=== PATIENT | male | born 1985 | race African-American/Black ===

== ENCOUNTER 2021-03-12 01:28 | Inpatient (IN) ==
[2021-03-12] MEDS ORDERED: ONDANSETRON 4 MG/2 ML VIAL IV STA (01:43)
[2021-03-12] MEDS ORDERED: SODIUM CHLORIDE 0.9% 1,000 ML IV STA ×2 (01:45→03:49)
[2021-03-12] MEDS ORDERED: HYDROmorphone 2 MG/1 ML VIAL IV STA (02:21)
[2021-03-12 03:01] LABS: Basophils % 0.2 % (0.0-0.8); Eosinophils # 0.1 10*3/uL (0.0-0.87); Eosinophils % 0.5 % (0.00-10.9); Hematocrit 22.6 VOL% (42.0-52.0); Hemoglobin 7.3 GM/DL (14.0-18.0); Immature Granulocytes % 1.2 %; Immature Granulocytes Absolute 0.18 #; Lymphocytes # 1.3 10*3/uL (1.4-4.0); Lymphocytes % 8.4 % (21.2-54.2); Mean Corpuscular HGB Conc 32.3 GM/DL (32-36); Monocytes % 6.5 % (1.7-12.7); NRBC # 0.06 10*3/uL; Neutrophils % 83.2 % (38.7-73.9); Platelet Count 491 T/CUMM (130-400); Red Blood Count 2.51 MC/CUMM (3.8-5.5); Red Cell Distribution Width 17.1 % (9.3-17.3); White Blood Count 15.1 T/CUMM (4-12)
[2021-03-12 03:35] LABS: Albumin 1.8 G/DL (3.4-5.0); Bilirubin,Total 0.6 MG/DL (0.20-1.00); Calcium 11.2 MG/DL (8.5-10.1); Osmolality,Calculated 303.4 MOS/KG (273-304); Potassium 3.9 MMOL/L (3.5-5.1); Total Protein 7.1 G/DL (6.4-8.2)
[2021-03-12] MEDS ORDERED: PIPERACILLIN/TAZOBACTAM 3,375 MG in SODIUM CHLORIDE 0.9% 100 ML IV STA (05:15)
[2021-03-12] MEDS ORDERED: ACETAMINOPHEN 325 MG TABLET PO PRN (05:56)
[2021-03-12] MEDS ORDERED: HYDROmorphone 2 MG/1 ML VIAL IV PRN (05:56)
[2021-03-12] MEDS ORDERED: GLUCAGON 1 MG VIAL IM PRN (05:56)
[2021-03-12] MEDS ORDERED: DEXTROSE 10% 250 ML BAG IV PRN (05:56)
[2021-03-12] MEDS: SODIUM CHLORIDE 0.9% 1,000 ML IV SCH ×3 (06:19→22:30)
[2021-03-12 06:36] LABS: Bilirubin,Urine Negative (Negative); Blood, Urine Negative (Negative); Glucose,Urine (UA) Negative (Negative); Ketones,Urine Negative (Negative); Nitrite,Urine Negative (Negative); Protein,Urine 30 MG/DL; RBC,Urine 3 /HPF (0-4); Squamous Epithelial Cell,Urine Occasional /HPF (0-10); Urine Appearance CLEAR (Clear); Urine Color Yellow (Yellow); Urine Specific Gravity 1.014 (1.001-1.035); Urine Urobilinogen < 2.0 EU/DL (<2.0)
[2021-03-12 07:29] LABS: % Iron Saturation 17.5 % (18-50)
[2021-03-12 07:31] LABS: Folate 3.62 NG/ML (5.38-24.0)
[2021-03-12] MEDS: ALBUTEROL/IPRATROPIUM 3 ML NEB RESP TX SCH ×3 (07:37→19:18)
[2021-03-12 08:01] LABS: Barbiturates Screen,Urine Negative (Negative); Benzodiazepines Screen,Urine Negative (Negative); Cannabinoid Screen,Urine Negative (Negative); Opiate Screen,Urine Positive (Negative); Phencyclidine Screen,Urine Negative (Negative)
[2021-03-12] MEDS: FERROUS SULFATE 325 MG TABLET PO SCH ×2 (09:30→21:46)
[2021-03-12] MEDS: PANTOPRAZOLE 40 MG VIAL IV SCH (09:30)
[2021-03-12] MEDS: FOLIC ACID 1 MG TABLET PO SCH ×2 (09:30→21:46)
[2021-03-12] MEDS ORDERED: VANCOMYCIN INJ 1,250 MG in SODIUM CHLORIDE 0.9% 250 ML IV ONE (11:00)
[2021-03-12] MEDS: HYDROmorphone 2 MG/1 ML VIAL IV PRN ×4 (14:00→23:30)
[2021-03-12] MEDS ORDERED: ONDANSETRON 4 MG/2 ML VIAL IV PRN (14:22)
[2021-03-12] MEDS: PIPERACILLIN/TAZOBACTAM 3,375 MG in SODIUM CHLORIDE 0.9% 100 ML IV SCH ×2 (14:51→21:57)
[2021-03-12 15:11] LABS: Hematocrit 22.4 VOL% (42.0-52.0)
[2021-03-13] MEDS: HYDROmorphone 2 MG/1 ML VIAL IV PRN ×4 (01:42→17:31)
[2021-03-13] MEDS: ALBUTEROL/IPRATROPIUM 3 ML NEB RESP TX SCH ×4 (02:23→19:13)
[2021-03-13 05:49] LABS: Basophils % 0.2 % (0.0-0.8); Eosinophils % 0.3 % (0.00-10.9); Hematocrit 22.4 VOL% (42.0-52.0); Hemoglobin 6.9 GM/DL (14.0-18.0); Immature Granulocytes % 0.9 %; Immature Granulocytes Absolute 0.12 #; Lymphocytes # 0.9 10*3/uL (1.4-4.0); Lymphocytes % 6.7 % (21.2-54.2); Mean Corpuscular HGB Conc 30.8 GM/DL (32-36); Mean Corpuscular Volume 92.6 FL (87-102); NRBC # 0.05 10*3/uL; Neutrophils % 86.9 % (38.7-73.9); Platelet Count 431 T/CUMM (130-400); Red Blood Count 2.42 MC/CUMM (3.8-5.5); Red Cell Distribution Width 17.5 % (9.3-17.3); White Blood Count 13.7 T/CUMM (4-12)
[2021-03-13] MEDS: PIPERACILLIN/TAZOBACTAM 3,375 MG in SODIUM CHLORIDE 0.9% 100 ML IV SCH (05:53)
[2021-03-13 06:28] LABS: Alanine Aminotransferase 22 U/L (16-61); Albumin 1.6 G/DL (3.4-5.0); Alkaline Phosphatase 381 U/L (45-117); Aspartate Amino Transferase 111 U/L (0-37); Bilirubin,Total < 0.39 MG/DL (0.20-1.00); Blood Urea Nitrogen 102 MG/DL (7-18); Calcium 11.4 MG/DL (8.5-10.1); Carbon Dioxide 24 MMOL/L (21-32); Estimated Glom Filtration Rate 30 ML/MIN; Glucose 89 MG/DL (74-106); Osmolality,Calculated 296.4 MOS/KG (273-304); Potassium 4.2 MMOL/L (3.5-5.1); Sodium 133 MMOL/L (136-145); Total Protein 6.7 G/DL (6.4-8.2)
[2021-03-13] MEDS ORDERED: VANCOMYCIN INJ 1,000 MG in SODIUM CHLORIDE 0.9% 250 ML IV PRN (09:00)
[2021-03-13] MEDS: PANTOPRAZOLE 40 MG VIAL IV SCH (09:30)
[2021-03-13] MEDS: FERROUS SULFATE 325 MG TABLET PO SCH ×2 (09:30→22:36)
[2021-03-13] MEDS: FOLIC ACID 1 MG TABLET PO SCH ×2 (09:30→22:36)
[2021-03-13] MEDS: SODIUM CHLORIDE 0.9% 1,000 ML IV SCH ×3 (10:29→22:36)
[2021-03-13] MEDS ORDERED: LORazepam 2 MG/1 ML VIAL IV PRN (10:30)
[2021-03-13] MEDS ORDERED: SODIUM CHLORIDE 0.9% 1,000 ML IV PRN (11:04)
[2021-03-13 12:28] LABS: Prostate Specific Antigen Diag 0.54 NG/ML (0-3.60)
[2021-03-13 12:33] LABS: Carcinoembryonic Antigen 0.63 NG/ML (0.0-5.0)
[2021-03-13] MEDS: methylPREDNISolone SOD SUC 125 MG/2 ML VIAL IV SCH ×2 (13:16→22:37)
[2021-03-13] MEDS ORDERED: FUROSEMIDE 20 MG/2 ML VIAL IV ONE (15:50)
[2021-03-13 16:46] LABS: ABG Base Excess -1.9 MMOL/L (-2.5-2.5); ABG HCO3 22.8 MMOL/L (20-26); ABG Oxygen Saturation 93.4 % (95-100); ABG PCO2 38.8 MM HG (35-48); ABG PO2 70.7 MM HG (80-95); ABG TCO2 21.5 MMOL/L (23-27)
[2021-03-13] MEDS: MEROPENEM 1,000 MG in SODIUM CHLORIDE 0.9% 100 ML IV SCH (22:35)
[2021-03-14] MEDS: HYDROmorphone 2 MG/1 ML VIAL IV PRN ×6 (00:15→20:23)
[2021-03-14] MEDS: ALBUTEROL/IPRATROPIUM 3 ML NEB RESP TX SCH ×4 (01:25→19:40)
[2021-03-14 05:36] LABS: Basophils % 0.1 % (0.0-0.8); Immature Granulocytes % 0.9 %; Immature Granulocytes Absolute 0.18 #; Lymphocytes # 0.8 10*3/uL (1.4-4.0); Lymphocytes % 4.2 % (21.2-54.2); Mean Corpuscular HGB Conc 32.6 GM/DL (32-36); Mean Corpuscular Volume 90.3 FL (87-102); Mean Platelet Volume 9.1 FL (9.6-12.0); Monocytes % 5.4 % (1.7-12.7); NRBC # 0.04 10*3/uL; Neutrophils % 89.4 % (38.7-73.9); Red Cell Distribution Width 16.3 % (9.3-17.3)
[2021-03-14 05:40] LABS: Hematocrit 31.6 VOL% (42.0-52.0); Hemoglobin 10.3 GM/DL (14.0-18.0); Platelet Count 414 T/CUMM (130-400); White Blood Count 19.4 T/CUMM (4-12)
[2021-03-14 06:02] LABS: Albumin 1.6 G/DL (3.4-5.0); Bilirubin,Total 0.4 MG/DL (0.20-1.00); Calcium 10.6 MG/DL (8.5-10.1); Potassium 4.2 MMOL/L (3.5-5.1); Total Protein 6.8 G/DL (6.4-8.2)
[2021-03-14 06:02] LABS: Band Neutrophils 4 % (0-10); Hypochromia 1+; Lymphocytes 2 % (20-55); Metamyelocytes 1 %; Microcytosis 1+; Platelet Estimate Increased; Polychromasia Slight; Segmented Neutrophils 90 % (50-85); Target Cells Slight; Total Cells Counted 100
[2021-03-14 08:13] LABS: Albumin 1.6 G/DL (3.4-5.0); Bilirubin,Total 0.4 MG/DL (0.20-1.00); Calcium 10.7 MG/DL (8.5-10.1); Potassium 4.3 MMOL/L (3.5-5.1); Total Protein 6.7 G/DL (6.4-8.2)
[2021-03-14 08:25] LABS: INR 1.2; PT Patient Result 12.7 SECS (10.5-12.0)
[2021-03-14] MEDS: FOLIC ACID 1 MG TABLET PO SCH ×2 (09:03→21:54)
[2021-03-14] MEDS: FERROUS SULFATE 325 MG TABLET PO SCH ×2 (09:03→21:54)
[2021-03-14] MEDS: PANTOPRAZOLE 40 MG VIAL IV SCH (09:04)
[2021-03-14] MEDS: MEROPENEM 1,000 MG in SODIUM CHLORIDE 0.9% 100 ML IV SCH (09:13)
[2021-03-14] MEDS ORDERED: fentaNYL 12 MCG/HR PATCH TRANSDERM SCH (09:18)
[2021-03-14] MEDS ORDERED: FUROSEMIDE 20 MG/2 ML VIAL IV ONE (13:47)
[2021-03-14] MEDS: methylPREDNISolone SOD SUC 125 MG/2 ML VIAL IV SCH ×2 (14:16→22:30)
[2021-03-14] MEDS: HEPARIN 5,000 UNIT/1 ML VIAL SUBCUT SCH ×2 (14:36→22:03)
[2021-03-14] MEDS ORDERED: VANCOMYCIN INJ 1,000 MG in SODIUM CHLORIDE 0.9% 250 ML IV ONE (15:00)
[2021-03-14] MEDS: SODIUM CHLORIDE 0.9% 1,000 ML IV SCH (19:12)
[2021-03-14] MEDS: MEROPENEM 500 MG in SODIUM CHLORIDE 0.9% 100 ML IV SCH (21:59)
[2021-03-15] MEDS: HYDROmorphone 2 MG/1 ML VIAL IV PRN ×10 (01:30→23:08)
[2021-03-15] MEDS: SODIUM CHLORIDE 0.9% 1,000 ML IV SCH ×2 (01:32→20:09)
[2021-03-15] MEDS: MEROPENEM 500 MG in SODIUM CHLORIDE 0.9% 100 ML IV SCH ×3 (05:16→21:30)
[2021-03-15] MEDS: HEPARIN 5,000 UNIT/1 ML VIAL SUBCUT SCH ×3 (05:18→21:30)
[2021-03-15 07:02] LABS: Basophils % 0.1 % (0.0-0.8); Hematocrit 31.3 VOL% (42.0-52.0); Immature Granulocytes Absolute 0.21 #; Lymphocytes # 0.8 10*3/uL (1.4-4.0); Mean Corpuscular HGB Conc 31.9 GM/DL (32-36); Mean Corpuscular Volume 90.7 FL (87-102); Monocytes % 3.3 % (1.7-12.7); Neutrophils % 91.6 % (38.7-73.9); Platelet Count 422 T/CUMM (130-400); Red Blood Count 3.45 MC/CUMM (3.8-5.5); White Blood Count 20.6 T/CUMM (4-12)
[2021-03-15] MEDS: ALBUTEROL/IPRATROPIUM 3 ML NEB RESP TX SCH ×2 (07:15→07:20)
[2021-03-15 07:26] LABS: Anisocytosis 1+; Band Neutrophils 2 % (0-10); Hypochromia 1+; Lymphocytes 4 % (20-55); Microcytosis 1+; Segmented Neutrophils 91 % (50-85); Total Cells Counted 100
[2021-03-15 07:27] LABS: Platelet Estimate Increased
[2021-03-15 07:31] LABS: Calcium 9.5 MG/DL (8.5-10.1); Osmolality,Calculated 316.5 MOS/KG (273-304); Potassium 4.8 MMOL/L (3.5-5.1)
[2021-03-15 08:45] LABS: Albumin 1.6 G/DL (3.4-5.0); Bilirubin,Total 0.4 MG/DL (0.20-1.00); Calcium 10.1 MG/DL (8.5-10.1); Osmolality,Calculated 312.8 MOS/KG (273-304); Potassium 4.8 MMOL/L (3.5-5.1); Total Protein 6.7 G/DL (6.4-8.2)
[2021-03-15] MEDS: FERROUS SULFATE 325 MG TABLET PO SCH ×2 (09:06→20:18)
[2021-03-15] MEDS: PANTOPRAZOLE 40 MG VIAL IV SCH (09:06)
[2021-03-15] MEDS: FOLIC ACID 1 MG TABLET PO SCH ×2 (09:06→20:18)
[2021-03-15] MEDS: methylPREDNISolone SOD SUC 125 MG/2 ML VIAL IV SCH ×2 (10:48→22:30)
[2021-03-15] MEDS: fentaNYL 50 MCG/HR PATCH TRANSDERM SCH (12:37)
[2021-03-15] MEDS: busPIRone 5 MG TABLET PO SCH ×2 (15:05→20:18)
[2021-03-16] MEDS: HYDROmorphone 2 MG/1 ML VIAL IV PRN ×7 (01:13→23:13)
[2021-03-16] MEDS: HEPARIN 5,000 UNIT/1 ML VIAL SUBCUT SCH ×3 (05:01→22:32)
[2021-03-16] MEDS: MEROPENEM 500 MG in SODIUM CHLORIDE 0.9% 100 ML IV SCH ×3 (05:14→22:33)
[2021-03-16 06:56] LABS: Basophils % 0.1 % (0.0-0.8); Hematocrit 34.6 VOL% (42.0-52.0); Hemoglobin 11.1 GM/DL (14.0-18.0); Immature Granulocytes % 1.4 %; Immature Granulocytes Absolute 0.29 #; Lymphocytes # 0.6 10*3/uL (1.4-4.0); Lymphocytes % 2.8 % (21.2-54.2); Mean Corpuscular HGB Conc 32.1 GM/DL (32-36); Mean Corpuscular Volume 91.1 FL (87-102); Mean Platelet Volume 8.5 FL (9.6-12.0); Monocytes % 3.1 % (1.7-12.7); Neutrophils % 92.6 % (38.7-73.9); Platelet Count 366 T/CUMM (130-400); White Blood Count 20.4 T/CUMM (4-12)
[2021-03-16 07:17] LABS: Hypochromia Slight; Lymphocytes 2 % (20-55); Microcytosis Slight; Platelet Estimate Adequate; Segmented Neutrophils 96 % (50-85); Total Cells Counted 100
[2021-03-16 07:30] LABS: Calcium 9.9 MG/DL (8.5-10.1); Osmolality,Calculated 318.5 MOS/KG (273-304); Potassium 5.1 MMOL/L (3.5-5.1)
[2021-03-16 07:38] LABS: Albumin 1.7 G/DL (3.4-5.0); Bilirubin,Total 1.5 MG/DL (0.20-1.00); Calcium 9.5 MG/DL (8.5-10.1); Osmolality,Calculated 323.3 MOS/KG (273-304); Potassium 5.1 MMOL/L (3.5-5.1); Total Protein 6.8 G/DL (6.4-8.2)
[2021-03-16] MEDS: SODIUM CHLORIDE 0.9% 1,000 ML IV SCH ×2 (08:11→23:20)
[2021-03-16] MEDS: PANTOPRAZOLE 40 MG VIAL IV SCH (08:16)
[2021-03-16 08:54] LABS: Total Protein 6.8 G/DL (6.4-8.2)
[2021-03-16] MEDS: FERROUS SULFATE 325 MG TABLET PO SCH ×2 (10:10→20:55)
[2021-03-16] MEDS: FOLIC ACID 1 MG TABLET PO SCH ×2 (10:10→20:55)
[2021-03-16] MEDS: busPIRone 5 MG TABLET PO SCH ×2 (10:11→20:55)
[2021-03-16] MEDS: methylPREDNISolone SOD SUC 125 MG/2 ML VIAL IV SCH ×2 (11:06→23:20)
[2021-03-16] MEDS: LEVALBUTEROL 1.25 MG/3 ML NEB RESP TX SCH ×2 (13:45→19:07)
[2021-03-17] MEDS: LEVALBUTEROL 1.25 MG/3 ML NEB RESP TX SCH ×4 (00:40→21:12)
[2021-03-17 06:40] LABS: Basophils % 0.1 % (0.0-0.8); Hematocrit 36.6 VOL% (42.0-52.0); Hemoglobin 11.6 GM/DL (14.0-18.0); Immature Granulocytes % 1.5 %; Immature Granulocytes Absolute 0.28 #; Lymphocytes # 0.8 10*3/uL (1.4-4.0); Lymphocytes % 4.3 % (21.2-54.2); Mean Corpuscular HGB Conc 31.7 GM/DL (32-36); Mean Corpuscular Volume 91.3 FL (87-102); Mean Platelet Volume 9.1 FL (9.6-12.0); Monocytes % 3.4 % (1.7-12.7); Neutrophils % 90.7 % (38.7-73.9); Platelet Count 348 T/CUMM (130-400); Red Blood Count 4.01 MC/CUMM (3.8-5.5); Red Cell Distribution Width 17.1 % (9.3-17.3); White Blood Count 19.1 T/CUMM (4-12)
[2021-03-17] MEDS: HEPARIN 5,000 UNIT/1 ML VIAL SUBCUT SCH ×3 (06:52→22:19)
[2021-03-17] MEDS: MEROPENEM 500 MG in SODIUM CHLORIDE 0.9% 100 ML IV SCH ×3 (06:52→22:20)
[2021-03-17 06:58] LABS: Albumin 1.8 G/DL (3.4-5.0); Bilirubin,Total 0.9 MG/DL (0.20-1.00); Calcium 8.8 MG/DL (8.5-10.1); Osmolality,Calculated 331.8 MOS/KG (273-304); Potassium 5.6 MMOL/L (3.5-5.1); Total Protein 6.9 G/DL (6.4-8.2)
[2021-03-17 07:09] LABS: Band Neutrophils 4 % (0-10); Hypochromia 1+; Lymphocytes 5 % (20-55); Microcytosis 1+; Segmented Neutrophils 89 % (50-85); Total Cells Counted 100
[2021-03-17 07:10] LABS: Platelet Estimate Normal; Polychromasia Slight
[2021-03-17] MEDS ORDERED: LORazepam 2 MG/1 ML VIAL IV PRN (08:55)
[2021-03-17] MEDS ORDERED: SODIUM POLYSTYRENE SULFATE 15 GM/60 ML BOTTLE PO ONE (09:00)
[2021-03-17] MEDS: busPIRone 5 MG TABLET PO SCH ×2 (10:04→22:19)
[2021-03-17] MEDS: FERROUS SULFATE 325 MG TABLET PO SCH ×2 (10:04→22:19)
[2021-03-17] MEDS: FOLIC ACID 1 MG TABLET PO SCH ×2 (10:04→22:20)
[2021-03-17] MEDS: PANTOPRAZOLE 40 MG VIAL IV SCH (10:05)
[2021-03-17] MEDS: HYDROmorphone 2 MG/1 ML VIAL IV PRN ×4 (10:06→19:59)
[2021-03-17 10:28] LABS: Immunoglobulin G (Chem) 1140 MG/DL (700-1600); Total Protein (Chem) 6.8 G/DL (6.4-8.3)
[2021-03-17 10:29] LABS: Immunoglobulin A (Chem) 172 MG/DL (70-400); Immunoglobulin M (Chem) 75 MG/DL (40-230)
[2021-03-17 10:45] LABS: Albumin (SPE) 2.8 G/DL (3.2-5.3); Albumin (SPE) Rel % 40.5 %; Alpha 1 (SPE) 0.5 G/DL (0.1-0.4); Alpha 2 (SPE) 1.5 G/DL (0.4-1.0); Alpha 2 (SPE) Rel % 21.6 %; Beta (SPE) 0.8 G/DL (0.5-1.1); Beta (SPE) Rel % 11.4 %; Gamma (SPE) 1.3 G/DL (0.7-1.7); Gamma (SPE) Rel % 19.5 %
[2021-03-17] MEDS: methylPREDNISolone SOD SUC 125 MG/2 ML VIAL IV SCH (11:42)
[2021-03-17] MEDS: SODIUM CHLORIDE 0.9% 1,000 ML IV SCH (11:43)
[2021-03-17 14:37] LABS: Kappa Free Light Chain 4.43 mg/dL; Lambda Free Light Chain 2.31 mg/dL
[2021-03-18] MEDS: methylPREDNISolone SOD SUC 125 MG/2 ML VIAL IV SCH ×3 (00:12→21:43)
[2021-03-18] MEDS: SODIUM CHLORIDE 0.9% 1,000 ML IV SCH ×2 (00:12→13:59)
[2021-03-18] MEDS: LEVALBUTEROL 1.25 MG/3 ML NEB RESP TX SCH ×4 (01:22→21:58)
[2021-03-18 05:07] LABS: Basophils % 0.1 % (0.0-0.8); Hematocrit 36.1 VOL% (42.0-52.0); Hemoglobin 11.3 GM/DL (14.0-18.0); Immature Granulocytes % 0.8 %; Immature Granulocytes Absolute 0.13 #; Lymphocytes # 0.7 10*3/uL (1.4-4.0); Lymphocytes % 4.7 % (21.2-54.2); Mean Corpuscular HGB Conc 31.3 GM/DL (32-36); Mean Corpuscular Volume 91.2 FL (87-102); Mean Platelet Volume 8.9 FL (9.6-12.0); NRBC # 0.03 10*3/uL; Neutrophils % 91.4 % (38.7-73.9); Platelet Count 261 T/CUMM (130-400); Red Blood Count 3.96 MC/CUMM (3.8-5.5); Red Cell Distribution Width 17.2 % (9.3-17.3); White Blood Count 15.8 T/CUMM (4-12)
[2021-03-18 05:40] LABS: Albumin 1.6 G/DL (3.4-5.0); Bilirubin,Total 0.6 MG/DL (0.20-1.00); Calcium 7.8 MG/DL (8.5-10.1); Osmolality,Calculated 342.7 MOS/KG (273-304); Total Protein 6.4 G/DL (6.4-8.2)
[2021-03-18 06:04] LABS: Potassium 6.1 MMOL/L (3.5-5.1)
[2021-03-18] MEDS: HEPARIN 5,000 UNIT/1 ML VIAL SUBCUT SCH ×3 (06:13→21:24)
[2021-03-18] MEDS: MEROPENEM 500 MG in SODIUM CHLORIDE 0.9% 100 ML IV SCH ×3 (06:14→23:16)
[2021-03-18 06:20] LABS: Hypochromia Slight; Lymphocytes 3 % (20-55); Microcytosis 1+; Segmented Neutrophils 94 % (50-85); Total Cells Counted 100
[2021-03-18] MEDS ORDERED: SODIUM ZIRCONIUM CYCLOSILICATE 10 GM PACK PO SCH (09:00)
[2021-03-18] MEDS: PANTOPRAZOLE 40 MG VIAL IV SCH (09:54)
[2021-03-18] MEDS: fentaNYL 50 MCG/HR PATCH TRANSDERM SCH (09:55)
[2021-03-18] MEDS: HYDROmorphone 2 MG/1 ML VIAL IV PRN (10:56)
[2021-03-18] MEDS: busPIRone 5 MG TABLET PO SCH (11:24)
[2021-03-18] MEDS: FOLIC ACID 1 MG TABLET PO SCH ×2 (11:25→21:24)
[2021-03-18] MEDS: FERROUS SULFATE 325 MG TABLET PO SCH (11:25)
[2021-03-18] MEDS ORDERED: diphenhydrAMINE 50 MG/1 ML VIAL IV ONE (13:14)
[2021-03-18] MEDS ORDERED: FAMOTIDINE 20 MG/2 ML VIAL IV ONE (13:14)
[2021-03-18] MEDS ORDERED: DEXTROSE 10% 1,000 ML IV SCH (13:30)
[2021-03-18] MEDS ORDERED: GRANISETRON 1 MG/1 ML VIAL IV SCH (13:30)
[2021-03-18] MEDS ORDERED: DEXAMETHASONE INJ 20 MG in SODIUM CHLORIDE 0.9% 50 ML IV ONE (14:00)
[2021-03-18 14:26] LABS: Antinuclear Ab, S 0.8 U
[2021-03-18] MEDS ORDERED: FLUOROURACIL IV SCH (14:30)
[2021-03-18] MEDS ORDERED: DEXTROSE 5% IV SCH (14:30)
[2021-03-18] MEDS ORDERED: SODIUM CHLORIDE 0.9% IV ONE ×2 (14:30)
[2021-03-18] MEDS ORDERED: PACLITAXEL IV ONE (14:30)
[2021-03-18] MEDS ORDERED: CARBOPLATIN IV ONE (14:30)
[2021-03-18 16:53] VITALS: BP 122/92
[2021-03-18] MEDS ORDERED: MORPHINE 2 MG/1 ML SYRINGE IV PRN ×2 (18:09→18:38)
[2021-03-18] MEDS ORDERED: NALOXONE 0.4 MG/ML VIAL IV ONE (18:23)
[2021-03-18] MEDS ORDERED: LORazepam 2 MG/1 ML VIAL IV PRN (18:56)
[2021-03-18] MEDS: MORPHINE 2 MG/1 ML SYRINGE IV PRN ×4 (19:07→21:20)
[2021-03-19] MEDS: methylPREDNISolone SOD SUC 125 MG/2 ML VIAL IV SCH ×2 (00:26→05:35)
[2021-03-19] MEDS: MORPHINE 2 MG/1 ML SYRINGE IV PRN ×2 (00:29→04:09)
[2021-03-19] MEDS: LEVALBUTEROL 1.25 MG/3 ML NEB RESP TX SCH ×2 (02:35→08:54)
[2021-03-19] MEDS: HEPARIN 5,000 UNIT/1 ML VIAL SUBCUT SCH (05:05)
[2021-03-19] MEDS: MEROPENEM 500 MG in SODIUM CHLORIDE 0.9% 100 ML IV SCH (05:05)
[2021-03-19 07:56] LABS: Albumin 1.3 G/DL (3.4-5.0); Bilirubin,Total 0.5 MG/DL (0.20-1.00); Calcium 7.2 MG/DL (8.5-10.1); Total Protein 5.8 G/DL (6.4-8.2)
[2021-03-19 07:57] LABS: Potassium 8.2 MMOL/L (3.5-5.1)
== END 2021-03-19 07:34 | disposition expired | DRG 640 ==
LOC: EDBD → EDUNIT# → N.ED 01:28 → SUATTDRO 05:56 → N.EDINP 05:56 → N.TELES 22:48
PROVIDERS: ADMIT Internal Medicine; ATTEND Emergency Medicine
PROC: IRTHORA (2021-03-14 15:20)